=== PATIENT | male | born 1990 | race African-American/Black ===

== ENCOUNTER 2017-08-01 13:25 | Emergency (ER) | payer OTHER ==
--- NOTE | ~2017-08-01 | CR63 ---
[facility]. [facility] A Service of [facility] RADIOLOGY TEXT RESULTS PATIENT: DIANNA CABRALES LOCATION: SED : 88 UNIT #: [id number] AGE: [address]: BR[place]O [place]S SEX: M ORDER DR: [id number] [place] [id number] E MR#: [id number] Acc #: [id number] NAME: DIANNA CABRALES : 1990 SEX: M STUDY DATE/TIME: 08/01/2017 15:29 UNIT: SED ROOM: STUDY DESCRIPTION: CR Chest 2 View Attending Physician: Bruno Hills A.P.R.N. Ordering Physician: Bruno Hills A.P.R.N. Primary Care Physician: Andres Ferguson M.D. MEDICAL IMAGING REPORT This report is preliminary unless electronic signature is present. EXAM Two-view chest 08/01/2017 INDICATION 27-year-old male with back pain, flank pain on the right since last night. No known injury. TECHNIQUE Two views of the chest were performed. No comparisons. FINDINGS Cardiac silhouette unremarkable. Vascularity normal. Lungs clear. No pneumothorax. IMPRESSION Negative chest. We have no comparisons. Dictated by... Sudhir Doll M.D. THIS IS AN ELECTRONICALLY VERIFIED REPORT Sudhir Doll M.D. at 08/02/2017 1:52 PM JANAK/aaron TD: 08/02/2017 09:47 JOB #: [id number] MEDICAL IMAGING REPORT Page 1 of 1
[~2017-08-01 13:25] MED LIST: AUGMENTIN PO; DEXAMETHASONE4 MG PO; GLUCOPHAGE500 MG PO; IBUPROFEN PO; KEFLEX500 M1 PO; LORTAB 5/500 TA1 TA1 PO; METFORMIN HCL500 M1 PO; NO MEDICATIONS; PENICILLIN PO; VOLTAREN50 MG PO
[2017-08-01 13:54] LABS: URINE SOURCE CLEAN CATCH
[2017-08-01 13:58] LABS: URINE APPEARANCE CLEAR; URINE BILIRUBIN NEG (NEG); URINE BLOOD NEG (NEG); URINE COLOR YELLOW; URINE GLUCOSE 300 MG/DL (NORM); URINE KETONE NEG (NEG); URINE LEUKOCYTE ESTERASE NEG (NEG); URINE NITRATE NEG (NEG); URINE PROTEIN NEG (NEG); URINE UROBILINOGEN 0.2 MG/DL (NORM)
[2017-08-01 14:04] LABS: MICRO INDICATED? NO
[2017-08-01 15:17] LABS: BASOPHIL# 0.1 X10e3 (0-0.3); BASOPHIL% 1.2 % (0-2.5); EOSINOPHIL# 0.1 X10e3 (0-0.7); EOSINOPHIL% 1.1 % (0.0-7.0); HEMATOCRIT 48.2 % (38.0-50.0); HEMOGLOBIN 16.5 gm/dL (13.0-16.0); LYMPHOCYTE# 1.6 X10e3 (1.0-3.5); LYMPHOCYTE% 30.6 % (17.0-45.0); MEAN CELL VOLUME 87.9 FL (83-96); MEAN CORPUSCULAR HEMOGLOBIN 30.1 PG (28-34); MEAN CORPUSCULAR HGB CONC 34.3 g/dL (30-36); MEAN PLATELET VOLUME 10.3 FL (6.5-11.5); MONOCYTE# 0.6 X10e3 (0-1.0); NEUTROPHIL# 2.9 X10e3 (1.5-7.1); NEUTROPHIL% 56.1 % (40-75); PLATELET COUNT 172 X10e3 (140-420); RED BLOOD COUNT 5.48 X10e (3.90-5.60); WHITE BLOOD COUNT 5.1 X10e3 (4.0-10.5)
[2017-08-01 15:18] LABS: DIFF IND NO
[2017-08-01 15:32] LABS: ALBUMIN SERUM 3.9 g/dL (3.5-5.0); BILIRUBIN,TOTAL 1.1 mg/dL (0.2-2.0); BUN/CREATININE RATIO 12.72; CALCIUM SERUM 9.1 mg/dL (8.4-10.2); CREATININE SERUM 1.1 mg/dL (0.6-1.4); GLOM FILT RATE Estimated 105.3 mL/min (>60); POTASSIUM 4.1 mmol/L (3.5-5.1); PROTEIN TOTAL SERUM 7.2 g/dL (6.0-8.3)
== END 2017-08-01 19:24 | disposition home or self-care (01) ==
LOC: SED 13:25
PROVIDERS: Nurse Practitioner; Student in an Organized Health Care Education/Training Program
DX: M54.6 Pain in thoracic spine (principal); E11.65 Type 2 diabetes mellitus with hyperglycemia; R10.9 Unspecified abdominal pain; Z79.84 Long term (current) use of oral hypoglycemic drugs
CPT/HCPCS: 36415; 71020; 80053; 81003; 82947; 83690; 85025; 96361; 96374; 99284; J1885

== ENCOUNTER 2017-08-02 22:05 | Emergency (ER) | payer OTHER ==
[~2017-08-02] VITALS: Ht 175.3 cm; Wt 129.3 kg
[2017-08-03 01:00] LABS: BASOPHIL# 0.1 X10e3 (0-0.3); BASOPHIL% 0.9 % (0-2.5); EOSINOPHIL# 0.1 X10e3 (0-0.7); EOSINOPHIL% 1.1 % (0.0-7.0); HEMATOCRIT 46.8 % (38.0-50.0); HEMOGLOBIN 16.3 gm/dL (13.0-16.0); LYMPHOCYTE# 2.8 X10e3 (1.0-3.5); LYMPHOCYTE% 34.2 % (17.0-45.0); MEAN CELL VOLUME 86.5 FL (83-96); MEAN CORPUSCULAR HEMOGLOBIN 30.1 PG (28-34); MEAN CORPUSCULAR HGB CONC 34.8 g/dL (30-36); MEAN PLATELET VOLUME 9.9 FL (6.5-11.5); MONOCYTE# 0.7 X10e3 (0-1.0); MONOCYTE% 8.9 % (3.0-12.0); NEUTROPHIL# 4.6 X10e3 (1.5-7.1); NEUTROPHIL% 54.9 % (40-75); PLATELET COUNT 212 X10e3 (140-420); RED BLOOD COUNT 5.41 X10e (3.90-5.60); RED CELL DISTRIBUTION WIDTH 12.8 % (11.0-15.5)
[2017-08-03 01:05] LABS: DIFF IND NO; WHITE BLOOD COUNT 8.3 X10e3 (4.0-10.5)
[2017-08-03 01:24] LABS: BETA HYDROXYBUTYRATE 0.14 MMOL/L (0.02-0.27); BILIRUBIN, DIRECT 0.1 mg/dL (0.0-0.2); BILIRUBIN,INDIRECT 0.8 mg/dL (0.0-0.9); BILIRUBIN,TOTAL 0.9 mg/dL (0.2-2.0); CALCIUM SERUM 9.4 mg/dL (8.4-10.2); GLOM FILT RATE Estimated 118.2 mL/min (>60); PROTEIN TOTAL SERUM 7.5 g/dL (6.0-8.3)
== END 2017-08-03 03:15 | disposition home or self-care (01) ==
LOC: CED 22:05
PROVIDERS: Emergency Medicine
DX: E11.65 Type 2 diabetes mellitus with hyperglycemia (principal); G40.909 Epilepsy, unspecified, not intractable, without status epilepticus
CPT/HCPCS: 36415; 80048; 80076; 82010; 82947; 85025; 96360; 99285